=== PATIENT | male | born 1990 | race Caucasian/White ===

== ENCOUNTER 2018-07-12 01:07 | Emergency (ER) | payer MEDICAID, SELFPAY ==
[2018-07-12 01:11] VITALS: BP 128/96; PULSE 98; RESP 16; TEMP 36.4; O2SAT 100; BMI 19.5
--- NOTE | 2018-07-12 01:31 | ED.DCSUM_ITS ---
- ER Visit Summary Date of Service: 07/12/18 Chief Complaint: Left thumb injury History of Present Illness: The patient is a 28 M who presents with a left thumb injury. He accidentally closed it in the bathroom door. This occurred about 3 hours ago. He is concerned that he may need stitches or glue. He complains of a recent URI-like illness but has no other complaints. Physical Examination: Afebrile vitals are normal There is a 2 cm total length crescent-shaped laceration on the pad of the left thumb this is very superficial and not full-thickness to the skin there is no active bleeding I am unable to pull this or gaping apart. Normal sensation distally brisk capillary refill Test Results: Deferred Emergency Department Course and Treatment: I discussed obtaining an x-ray to rule out underlying fracture. The patient refused this. He states he only came in to see if he needed stitches or glue and if that he does not he can just go home and clean it up himself and requested discharge. Treatment Plan: [] Disposition: Discharge Impression: Left thumb laceration This note was generated with [employer] dictation software. It may contain incorrect words, spelling, and punctuation that were not noted in review of the chart prior to signing ED Disposition - Plan for ED Patient: Referrals: Care Physician,No Primary [Primary Care Provider] -
--- NOTE | 2018-07-12 01:31 | ED.DEP ---
ED Disposition - Plan for ED Patient: Instructions: ED Laceration Small Superf No Sutr Referrals: Care Physician,No Primary [Primary Care Provider] -
[2018-07-12 01:47] VITALS: RESP 18
== END 2018-07-12 01:48 | disposition home or self-care (01) ==
LOC: ED 01:32
PROVIDERS: Emergency Provider Emergency Medicine
DX: S61.012A Laceration without foreign body of left thumb without damage to nail, initial encounter (principal); W23.0XXA Caught, crushed, jammed, or pinched between moving objects, initial encounter; Y92.002 Bathroom of unspecified non-institutional (private) residence as the place of occurrence of the external cause; Y99.9 Unspecified external cause status; J34.89 Other specified disorders of nose and nasal sinuses; Z72.0 Tobacco use
CPT/HCPCS: 99282

== ENCOUNTER 2023-06-30 14:04 | Emergency (ER) | payer MEDICAID, SELFPAY ==
[2023-06-30 14:04] VITALS: BP 181/138; PULSE 100; RESP 20; TEMP 36.6; O2SAT 98; BMI 26.2
[2023-06-30 14:21] LABS: Mucous, Urine 0 SEEN /hpf (<or=2+); Squamous Epithelial Cells - UA 0 SEEN /hpf (0-5)
[2023-06-30 14:34] LABS: Color, Urine Yellow (Yellow); Glucose, Dipstick Normal (Normal); Ketone-Dipstick 5 mg/dl (Negative); Leukocyte Esterase-Dipstick 25 /ul (Negative); Nitrite-Dipstick Negative (Negative); Occult Blood-Urine 250 /ul (Negative); Protein-Dipstick 15 mg/dl (Negative); Specific Gravity, Urine 1.015 (1.002-1.030); Urine Bilirubin Dipstick Negative (Negative); Urine Clarity Clear (Clear); Urine Urobilinogen Normal (Normal)
[2023-06-30 14:55] LABS: Bacteria 1+ /hpf (None Seen); Red Blood Cells-Urine 25-50 SEEN /hpf (0-5); White Blood Cells 0-5 SEEN /hpf (0-5)
--- OUTSIDE RECORDS SUMMARY | 2023-06-30 19:09 | XMS RPT_ITS | CCD ---
Author Name Unknown Address [address] [place] [address] Organization [facility] Results Test Name Value Interpretation Reference Range Facil ity Encounters Encounter Date Encounter Type Care Provider Facility Start: 04-29-2017 End: 04-30-2017 [facility] Summary Purpose Family History No Family History Records Found Advance Directives No Advanced Directives Records Found Additional Source Comments (unrecognized sect ion and content) No Status Records Found INFORMATION SOURCE (unrecogn ized section and content) FOR RECORDS PERTAINING TO PATIENTS WHO ARE OR HAVE BEEN ENROLLED IN A CHEMICAL DEPENDENCY/SUBSTANCEABUSE PROGRAM, SOME INFORMATION MAY BE OMITTED. This clinical summary was aggregated from multiple sources. Caution should be exercised in using it in the provision of clinical care. This summary normalizes information from multiple sources, and as a consequence, information in this document may materially change the coding, format and clinical context of patient data. In addition, data may be omitted in some cases. CLINICAL DECISIONS SHOULD BE BASED ON THE PRIMARY CLINICAL RECORDS. [facility] provides no warranty or guarantee of the accuracy or completeness of information in this document.
== END 2023-06-30 19:00 | disposition left against medical advice (07) ==
LOC: ED 19:07
PROVIDERS: Emergency Provider Student in an Organized Health Care Education/Training Program; Visit Provider Student in an Organized Health Care Education/Training Program
DX: Z71.1 Person with feared health complaint in whom no diagnosis is made (principal)
CPT/HCPCS: 81001